=== PATIENT | female | born 2000 | race Caucasian/White ===

== ENCOUNTER 2020-04-12 09:36 | Emergency (ER) | payer MEDICARE, OTHER ==
[~2020-04-12 09:36] MED LIST: IBUPROFEN400 MG PO; IMITREX25 MG PO; KEFLEX CAP 500500 MG PO; MEDROL4 MG PO; NORCO 5-325 TA1 EACH PO
== END 2020-04-12 12:17 | disposition home or self-care (01) ==
LOC: ER1 09:36
DX: G43.909 Migraine, unspecified, not intractable, without status migrainosus (principal); Z88.8 Allergy status to other drugs, medicaments and biological substances
CPT/HCPCS: 96374; 96375; 99283; J1200; J1885; J2765; J7030

== ENCOUNTER 2020-06-24 01:05 | Emergency (ER) | payer MEDICARE, OTHER ==
[2020-06-24 03:35] LABS: HEMOGLOBIN 14.4 gm/dl (12.3-15.3); RED BLOOD COUNT 4.82 M/UL (4.00-5.10); WHITE BLOOD COUNT 15.2 K/UL (4.5-11.0)
[2020-06-24 03:54] LABS: BUN/CREATININE RATIO 18 (0-10)
[2020-06-24] MEDS ORDERED: ZOFRAN ODT 4 MG4 MG PO (09:26)
== END 2020-06-24 09:41 | disposition home or self-care (01) ==
LOC: ER1 01:05
PROVIDERS: Student in an Organized Health Care Education/Training Program
DX: K52.9 Noninfective gastroenteritis and colitis, unspecified (principal); F17.210 Nicotine dependence, cigarettes, uncomplicated
CPT/HCPCS: 80053; 81001; 83605; 83690; 84702; 84703; 85025; 96374; 96375; 99284; J2270; J2405; Q9967

== ENCOUNTER → 2020-07-12 | Outpatient (CLI) | payer MEDICARE, OTHER ==
[~2020-07-12] MED LIST changes: +ZOFRAN ODT 4 MG4 MG PO
== END ==
LOC: EXRD 10:24
DX: R10.13 Epigastric pain (principal)
CPT/HCPCS: 76705

== ENCOUNTER 2021-02-07 12:59 | Emergency (ER) | payer MEDICARE, OTHER ==
[2021-02-07 16:03] LABS: HEMOGLOBIN 14.3 gm/dl (12.3-15.3); RED BLOOD COUNT 4.77 M/UL (4.00-5.10); WHITE BLOOD COUNT 6.1 K/UL (4.5-11.0)
[2021-02-07 16:24] LABS: BUN/CREATININE RATIO 13 (0-10)
[2021-02-07] MEDS ORDERED: IBUPROFEN600 MG PO (16:56)
== END 2021-02-07 17:17 | disposition home or self-care (01) ==
LOC: ER1 12:59
PROVIDERS: Physician Assistant Medical
DX: M54.50 Low back pain, unspecified (principal)
CPT/HCPCS: 80053; 81001; 84703; 85025; 96372; 99284; J1885; J2360